=== PATIENT | female | born 1975 | race Caucasian/White ===

== ENCOUNTER 2025-04-13 14:31 | Emergency (ER) | payer BC, OTHER ==
[2025-04-13 14:40] VITALS: BP 126/90; PULSE 84; RESP 18; TEMP 98.2; BMI 31.7
[2025-04-13] MEDS ORDERED: BACITRACIN ZINC 15 GM TUBE TOPICAL OINTMENT ONE (14:55)
[2025-04-13] MEDS ORDERED: ACETAMINOPHEN 500 MG TABLET (FP) ONE (14:58)
[2025-04-13] MEDS: ACETAMINOPHEN 500 MG TABLET (FP) PO ONE (15:08)
[2025-04-13] MEDS: IBUPROFEN 600 MG TABLET (FP) PO ONE (15:26)
== END 2025-04-13 16:16 | disposition home or self-care (01) ==
LOC: JER 14:31
DX: S60.022A Contusion of left index finger without damage to nail, initial encounter (principal); S80.211A Abrasion, right knee, initial encounter; S80.212A Abrasion, left knee, initial encounter; S09.93XA Unspecified injury of face, initial encounter; W01.0XXA Fall on same level from slipping, tripping and stumbling without subsequent striking against object, initial encounter; Y92.410 Unspecified street and highway as the place of occurrence of the external cause
CPT/HCPCS: 70150-TC-FY; 73110-TC-LT-FY; 73130-TC-LT-FY; 99284-25